=== PATIENT | male | born 1995 | race Caucasian/White ===

== ENCOUNTER 2019-09-09 02:05 | Emergency (ER) | payer OTHER | END 2019-09-09 03:56 | disposition other institution (70) | LOC: ED 02:05 | DX: Z02.89 Encounter for other administrative examinations (principal) ==

== ENCOUNTER 2019-09-09 02:05 | Emergency (ER) | payer SELFPAY ==
[~2019-09-09] VITALS: Ht 172.7 cm; Wt 79.4 kg
[2019-09-09 02:17] VITALS: BP 128/83; Ht 172.7 cm; Wt 79.4 kg
[2019-09-09 03:07] LABS: CALCIUM 8.5 mg/dL (8.5-10.1); CARBON DIOXIDE 23.6 mmol/L (21-32); CHLORIDE SERUM 105 mmol/L (98-107); CREATININE SERUM 1.2 mg/dL (0.7-1.3); GFR1 > 60 mL/min; GLUCOSE SERUM 84 mg/dL (74-106); POTASSIUM SERUM 3.3 mmol/L (3.5-5.1); SODIUM SERUM 141 mmol/L (136-145)
[2019-09-09 03:40] LABS: BASOPHIL % 0.6 % (0-2); PLATELET COUNT 180 x10^3mcL (130-400); RED CELL DISTRIBUTION WIDTH 13.6 % (11.5-14.5)
== END 2019-09-09 03:56 | disposition other institution (70) ==
LOC: ED 02:05
PROVIDERS: Emergency Medicine
DX: S02.2XXA Fracture of nasal bones, initial encounter for closed fracture (principal); S01.01XA Laceration without foreign body of scalp, initial encounter; Y04.8XXA Assault by other bodily force, initial encounter; Y93.89 Activity, other specified; Y92.89 Other specified places as the place of occurrence of the external cause; Y99.8 Other external cause status
CPT/HCPCS: 36415; G0480; J2001; Q0092